=== PATIENT | male | born 1975 | race Caucasian/White ===

== ENCOUNTER → 2017-06-13 | Outpatient (REF) | payer MEDICARE ==
[2017-06-13 20:05] LABS: HEMATOCRIT 41.8 % (42.0-52.0)
[2017-06-13 20:22] LABS: FERRITIN 116 NG/ML (26-388); IRON (FE) 58 UG/DL (65-175); PERCENT SATURATION 16.6 % (19.7-50.0); TOTAL IRON BINDING CAPACITY 350 UG/DL (250-450)
[2017-06-14 10:44] LABS: HEPATITIS B SURFACE ANTIGEN NEGATIVE (NEGATIVE)
[2017-06-14 10:52] LABS: VITAMIN B12 LEVEL 338 PG/ML (247-911)
[2017-06-14 11:12] LABS: HEPATITIS B CORE ANTIBODY IGM NEGATIVE (NEGATIVE)
[2017-06-14 11:14] LABS: HEPATITIS A ANTIBODY IGM NEGATIVE (NEGATIVE)
[2017-06-14 11:46] LABS: PRETREATED FOLATE FOR RBCFOL 12.4 NG/ML
[2017-06-15 15:11] LABS: ANTINUCLEAR ANTIBODIES DIRECT Negative (Negative)
== END ==
LOC: M LAB REF 18:54
DX: R74.8 Abnormal levels of other serum enzymes (principal)
CPT/HCPCS: 83550

== ENCOUNTER → 2018-04-16 | Outpatient (CLI) | payer MEDICARE | LOC: M SMT 10:51 | DX: M54.9 Dorsalgia, unspecified (principal); W19.XXXA Unspecified fall, initial encounter; X58.XXXA Exposure to other specified factors, initial encounter; Y93.9 Activity, unspecified | CPT/HCPCS: 71046 ==

== ENCOUNTER → 2020-02-02 | Outpatient (REF) | LOC: M LAB 11:07 | PROVIDERS: ATTEND Nurse Practitioner Adult Health | DX: Z00.00 Encounter for general adult medical examination without abnormal findings (principal) ==

== ENCOUNTER → 2022-03-19 | Outpatient (REF) | payer MEDICARE, MEDICAID | LOC: M LAB REF 16:07 | PROVIDERS: ATTEND Nurse Practitioner Adult Health | DX: L08.89 Other specified local infections of the skin and subcutaneous tissue (principal); B95.8 Unspecified staphylococcus as the cause of diseases classified elsewhere ==

== ENCOUNTER 2022-04-15 22:27 | Emergency (ER) | payer MEDICAID, MEDICARE ==
[~2022-04-15] VITALS: Ht 165.1 cm; Wt 51.6 kg
[2022-04-16] MEDS ORDERED: DERMABOND TOPICAL SKIN ADHESIVE TOP ONE (05:05)
[2022-04-16] MEDS ORDERED: BOOSTRIX/ADACEL VACCINE (DIPHTH/PERTUSS/ACELL/TETANUS) 0.5ML SYR IM ONE (05:05)
[2022-04-16 05:38] VITALS: BP 132/76
== END 2022-04-16 05:39 | disposition home or self-care (01) ==
LOC: M ED 22:27
DX: S61.215A Laceration without foreign body of left ring finger without damage to nail, initial encounter (principal); W27.4XXA Contact with kitchen utensil, initial encounter; Y92.099 Unspecified place in other non-institutional residence as the place of occurrence of the external cause; Y93.G1 Activity, food preparation and clean up; E11.9 Type 2 diabetes mellitus without complications; Z88.8 Allergy status to other drugs, medicaments and biological substances; Z91.018 Allergy to other foods; Z91.040 Latex allergy status

== ENCOUNTER 2022-09-24 16:47 | Emergency (ER) | payer MEDICAID, MEDICARE ==
[~2022-09-24] VITALS: Ht 162.6 cm; Wt 112.2 kg
[2022-09-24] MEDS ORDERED: FARX1TAB3 (16:54)
[2022-09-24] MEDS ORDERED: GLIM4TAB5 (16:54)
[2022-09-24] MEDS ORDERED: DULA3PEN (16:54)
[2022-09-24 19:31] VITALS: BP 156/90
== END 2022-09-24 19:39 | disposition home or self-care (01) ==
LOC: M ED 16:47
DX: S90.30XA Contusion of unspecified foot, initial encounter (principal); S90.822A Blister (nonthermal), left foot, initial encounter; W20.8XXA Other cause of strike by thrown, projected or falling object, initial encounter; Y99.0 Civilian activity done for income or pay; E11.9 Type 2 diabetes mellitus without complications; Z79.4 Long term (current) use of insulin; Z79.899 Other long term (current) drug therapy; Z88.8 Allergy status to other drugs, medicaments and biological substances; Z91.018 Allergy to other foods; Z91.040 Latex allergy status

== ENCOUNTER 2023-01-17 16:09 | Emergency (ER) | payer MEDICAID, MEDICARE ==
[~2023-01-17] VITALS: Ht 165.1 cm; Wt 106.7 kg
[~2023-01-17 16:09] MED LIST: DULA3PEN; FARX1TAB3; GLIM4TAB5
[2023-01-17 17:55] LABS: BASO # 0.1 10^3/uL (0.0-0.2); EOS # 0.2 10^3/uL (0.0-0.5); EOS % 2.3 % (0.0-3.0); HEMATOCRIT 44.4 % (42.0-52.0); HEMOGLOBIN 15.2 g/dl (13.5-17.5); LYMPH # 2.7 10^3/uL (1.5-5.0); LYMPH % 25.7 % (24.0-44.0); MEAN CORPUSCULAR HEMOGLOBIN 29.4 pg (27.0-33.0); MEAN CORPUSCULAR HGB CONC 34.2 g/dl (32.0-36.5); MEAN CORPUSCULAR VOLUME 85.9 fl (80.0-96.0); MONO # 0.5 10^3/uL (0.0-0.8); MONO % 4.8 % (2.0-8.0); NEUTROPHILS # 6.9 10^3/uL (1.5-8.5); NEUTROPHILS % 65.9 % (36.0-66.0); PLATELET COUNT, AUTOMATED 218 10^3/uL (150-450); RED BLOOD COUNT 5.17 10^6/uL (4.30-6.10); WHITE BLOOD COUNT 10.5 10^3/uL (4.0-10.0)
[2023-01-17 18:19] LABS: CK-MB VALUE MASS < 1.0 NG/ML (<3.6)
[2023-01-17 18:21] LABS: ALBUMIN 3.6 G/DL (3.2-5.2); ALKALINE PHOSPHATASE 80 U/L (46-116); ALT/SGPT 95 U/L (7.0-40); AST/SGOT 50 U/L (<34); BILIRUBIN,TOTAL 0.4 MG/DL (0.3-1.2); BLOOD UREA NITROGEN 19 MG/DL (9-23); CALCIUM LEVEL 8.7 MG/DL (8.5-10.1); CARBON DIOXIDE LEVEL 26 MMOL/L (20-31); CHLORIDE LEVEL 107 MMOL/L (98-107); CPK CREATINE PHOSPHOKINASE 59 U/L (46-171); CREATININE FOR GFR 0.65 MG/DL (0.70-1.30); GLOMERULAR FILTRATION RATE > 60.0 (>60); GLUCOSE, FASTING 182 MG/DL (60-100); MAGNESIUM LEVEL 1.9 MG/DL (1.8-2.4); MB/CK RELATIVE INDEX 1.69 (< OR =4); POTASSIUM SERUM 3.9 MMOL/L (3.5-5.1); SODIUM LEVEL 142 MMOL/L (136-145); TOTAL PROTEIN 7.5 G/DL (5.7-8.2)
[2023-01-17] MEDS ORDERED: MEDR4PAK PO (23:41)
[2023-01-17] MEDS ORDERED: METH-1164 PO (23:41)
[2023-01-17 23:48] VITALS: BP 136/78; TEMP 97.7; O2SAT 99
== END 2023-01-17 23:57 | disposition home or self-care (01) ==
LOC: M ED 16:09
DX: M54.12 Radiculopathy, cervical region (principal); E11.9 Type 2 diabetes mellitus without complications; I10 Essential (primary) hypertension; Z88.8 Allergy status to other drugs, medicaments and biological substances; Z91.040 Latex allergy status; Z91.018 Allergy to other foods; Z79.84 Long term (current) use of oral hypoglycemic drugs; Z79.899 Other long term (current) drug therapy

== ENCOUNTER → 2023-07-24 | Outpatient (CLI) | payer MEDICARE ==
[~2023-07-24] MED LIST changes: +MEDR4PAK PO; +METH-1164 PO; +METHACHOLINE KIT (6 VIAL.NEB PREMIX) INH ONE
== END ==
LOC: M CARPUL 07:56
PROVIDERS: ATTEND Nurse Practitioner Adult Health
DX: R06.2 Wheezing (principal)

== ENCOUNTER 2024-03-03 14:12 | Emergency (ER) | payer MEDICAID, MEDICARE ==
[~2024-03-03] VITALS: Ht 165.1 cm; Wt 107.4 kg
[~2024-03-03 14:12] MED LIST changes: -METHACHOLINE KIT (6 VIAL.NEB PREMIX) INH ONE
[2024-03-03] MEDS: ACETAMINOPHEN 325 MG TAB PO ONE (17:38)
[2024-03-03] MEDS ORDERED: IBUP-1022 PO (17:42)
[2024-03-03] MEDS ORDERED: METH-1165 PO (17:42)
[2024-03-03 17:55] VITALS: BP 160/88; TEMP 97.6; O2SAT 97
== END 2024-03-03 18:02 | disposition home or self-care (01) ==
LOC: M ED 14:12
DX: S09.90XA Unspecified injury of head, initial encounter (principal); S13.4XXA Sprain of ligaments of cervical spine, initial encounter; S16.1XXA Strain of muscle, fascia and tendon at neck level, initial encounter; S03.2XXA Dislocation of tooth, initial encounter; Y04.8XXA Assault by other bodily force, initial encounter; Y92.410 Unspecified street and highway as the place of occurrence of the external cause; Y93.9 Activity, unspecified; Y99.9 Unspecified external cause status; E11.9 Type 2 diabetes mellitus without complications; Z79.84 Long term (current) use of oral hypoglycemic drugs; Z79.899 Other long term (current) drug therapy; Z88.8 Allergy status to other drugs, medicaments and biological substances; Z91.018 Allergy to other foods; Z91.040 Latex allergy status

== ENCOUNTER 2024-03-07 20:46 | Emergency (ER) | payer MEDICARE ==
[~2024-03-07] VITALS: Ht 165.1 cm; Wt 107.9 kg
[~2024-03-07 20:46] MED LIST changes: +IBUP-1022 PO; +METH-1165 PO
[2024-03-07] MEDS: diphenhydrAMINE 50MG/ML VIAL IV STA (22:33)
[2024-03-07] MEDS: METOCLOPRAMIDE INJ 10MG/2ML VIAL IV ONE (22:33)
[2024-03-07] MEDS: KETOROLAC 30 MG/ML 1ML VIAL IV ONE (22:33)
[2024-03-07] MEDS: ACETAMINOPHEN 500 MG TAB PO ONE (22:34)
[2024-03-07 22:36] LABS: BASO # 0.1 10^3/uL (0.0-0.2); BASO % 0.8 % (0.0-1.0); EOS # 0.2 10^3/uL (0.0-0.5); EOS % 2.1 % (0.0-3.0); HEMATOCRIT 39.6 % (42.0-52.0); HEMOGLOBIN 13.9 g/dl (13.5-17.5); LYMPH % 29.9 % (24.0-44.0); MEAN CORPUSCULAR HEMOGLOBIN 30.4 pg (27.0-33.0); MEAN CORPUSCULAR HGB CONC 35.1 g/dl (32.0-36.5); MEAN CORPUSCULAR VOLUME 86.7 fl (80.0-96.0); MONO # 0.7 10^3/uL (0.0-0.8); MONO % 7.1 % (2.0-8.0); NEUTROPHILS # 5.9 10^3/uL (1.5-8.5); NEUTROPHILS % 59.7 % (36.0-66.0); PLATELET COUNT, AUTOMATED 206 10^3/uL (150-450); RED BLOOD COUNT 4.57 10^6/uL (4.30-6.10); WHITE BLOOD COUNT 9.9 10^3/uL (4.0-10.0)
[2024-03-07 23:04] LABS: ALBUMIN 3.5 G/DL (3.2-5.2); ALKALINE PHOSPHATASE 75 U/L (40-129); ALT/SGPT 52 U/L (7.0-40); AST/SGOT 28 U/L (<34); BILIRUBIN,DIRECT < 0.1 MG/DL (<0.4); BILIRUBIN,TOTAL 0.3 MG/DL (0.3-1.2); BLOOD UREA NITROGEN 14 MG/DL (9-23); CALCIUM LEVEL 8.9 MG/DL (8.5-10.1); CARBON DIOXIDE LEVEL 28 MMOL/L (20-31); CHLORIDE LEVEL 105 MMOL/L (98-107); CREATININE FOR GFR 0.65 MG/DL (0.70-1.30); GLOMERULAR FILTRATION RATE > 60.0 (>60); GLUCOSE, FASTING 184 MG/DL (60-100); POTASSIUM SERUM 4.3 MMOL/L (3.5-5.1); SODIUM LEVEL 138 MMOL/L (136-145); TOTAL PROTEIN 7.6 G/DL (5.7-8.2)
[2024-03-08 01:07] VITALS: BP 130/79; TEMP 97.1; O2SAT 99
== END 2024-03-08 01:10 | disposition home or self-care (01) ==
LOC: M ED 20:46
DX: R51.9 Headache, unspecified (principal); Z79.899 Other long term (current) drug therapy; Z88.8 Allergy status to other drugs, medicaments and biological substances; Z91.018 Allergy to other foods; Z91.040 Latex allergy status
CPT/HCPCS: 80048; 80076; 85025; 96374; 96375; 99284; J1200; J1885; J2765

== ENCOUNTER → 2024-05-11 | Outpatient (REF) | payer MEDICARE ==
[2024-05-11 12:47] LABS: RSV AMPLIFICATION NEGATIVE (NEGATIVE)
== END ==
LOC: M LAB REF 11:38
PROVIDERS: ATTEND Nurse Practitioner Adult Health
DX: J02.9 Acute pharyngitis, unspecified (principal)

== ENCOUNTER → 2024-05-19 | Outpatient (REF) | payer MEDICARE | LOC: M LAB REF 13:02 | PROVIDERS: ATTEND Physician Assistant Medical | DX: J02.9 Acute pharyngitis, unspecified (principal) ==

== ENCOUNTER → 2024-05-27 | Outpatient (REF) | payer MEDICARE | LOC: M LAB REF 16:12 | PROVIDERS: ATTEND Nurse Practitioner Adult Health | DX: J02.9 Acute pharyngitis, unspecified (principal) ==

== ENCOUNTER → 2024-05-29 | Outpatient (CLI) | payer MEDICARE | LOC: M RAD 10:00 | PROVIDERS: ATTEND Nurse Practitioner Adult Health | DX: R05.9 Cough, unspecified (principal) ==

== ENCOUNTER 2024-12-25 10:27 | Emergency (ER) | payer MEDICARE, MEDICAID ==
[~2024-12-25] VITALS: Ht 165.1 cm; Wt 109.8 kg
[2024-12-25 14:29] VITALS: BP 152/96; TEMP 97.3; O2SAT 99
== END 2024-12-25 14:32 | disposition home or self-care (01) ==
LOC: M ED 11:54
DX: S06.0X0A Concussion without loss of consciousness, initial encounter (principal); S00.83XA Contusion of other part of head, initial encounter; W22.02XA Walked into lamppost, initial encounter; Y92.410 Unspecified street and highway as the place of occurrence of the external cause; Y93.01 Activity, walking, marching and hiking; Y99.9 Unspecified external cause status; E11.9 Type 2 diabetes mellitus without complications; I10 Essential (primary) hypertension; M51.34 Other intervertebral disc degeneration, thoracic region; Z79.84 Long term (current) use of oral hypoglycemic drugs; Z79.899 Other long term (current) drug therapy; Z88.8 Allergy status to other drugs, medicaments and biological substances; Z91.018 Allergy to other foods; Z91.040 Latex allergy status